=== PATIENT | female | born 1995 | race Caucasian/White ===

== ENCOUNTER → 2018-12-25 | Outpatient (CLI) | payer BC | LOC: OD 13:58 | PROVIDERS: ATTEND Midwife | DX: Z36.89 Encounter for other specified antenatal screening (principal); Z11.3 Encounter for screening for infections with a predominantly sexual mode of transmission | CPT/HCPCS: 36415; 82105; 82677; 84702; 86336; 87491; 87591 ==

== ENCOUNTER 2019-06-02 19:18 | Outpatient (CLI) | payer BC ==
[2019-06-02 20:05] LABS: APPEARANCE,URINE SLIGHTLY-CLOUDY; BILIRUBIN,URINE NEGATIVE (NEGATIVE); COLOR,URINE YELLOW; GLUCOSE, URINE NEGATIVE (NEGATIVE); KETONES,URINE NEGATIVE (NEGATIVE); LEUKOCYTE ESTERASE,URINE TRACE (NEGATIVE); NITRITE,URINE NEGATIVE (NEGATIVE); PROTEIN,URINE NEGATIVE (NEGATIVE); URINE SPECIFIC GRAVITY 1.016
[2019-06-02 20:21] LABS: URINE AMPHETAMINES SCREEN NEGATIVE; URINE BARBITURATES SCREEN NEGATIVE; URINE BENZODIAZEPINES SCREEN NEGATIVE; URINE COCAINE SCREEN NEGATIVE; URINE MARIJUANA (THC) SCREEN NEGATIVE; URINE METHADONE SCREEN NEGATIVE; URINE PHENCYCLIDINE SCREEN NEGATIVE
--- NOTE | 2019-06-02 21:42 | Non Stress Test Report ---
Non Stress Test Datetime Report Generated by CPN: 06/02/2019 21:41 INDICATION Indication for Study (NST) Other: gestational age greater than 32 weeks VITAL SIGNS Temperature - NST: 97.0 Pulse - NST: 86 RESP - NST: 17 NBPSYS NST: 123 NBPDIA NST: 65 MONITORING Monitor Explained: Monitor Explained; Test Explained; Patient Verbalized Understanding Time on Monitor: 06/02/2019 19:26 Time off Monitor: 06/02/2019 20:39 NST Duration: 73 NST INTERVENTIONS NST Interventions: Reposition Patient NST Interventions: PO Hydration; Reposition Patient Physician Notified NST: Dr Palafox BABY A: [id number] BABY A Movement : Present Contraction Frequency : 2-4 FHR Baseline : 125 Accelerations : 15X15 Variability : Moderate 6-25bpm NST Review: Meets Criteria for Reactive NST NST Review and Verified By : Shaquille Mccrary RN NST Results: Reactive NST REPORT Report Trigger: Send Report
== END 2019-06-02 20:45 | disposition home or self-care (01) ==
LOC: LC 19:18
PROVIDERS: ATTEND Obstetrics & Gynecology
PROC: 4A1HXCZ Monitoring of Products of Conception, Cardiac Rate, External Approach (ICD-10-PCS; principal; 2019-06-02)
DX: O47.1 False labor at or after 37 completed weeks of gestation (principal); Z3A.39 39 weeks gestation of pregnancy
CPT/HCPCS: 59025; 80307; 81005

== ENCOUNTER 2019-06-04 09:09 | Inpatient (IN) | payer BC ==
[2019-06-05] MEDS ORDERED: RINGERS SOLUTION,LACTATED 1,500 ML IV PRN (05:00)
[2019-06-05] MEDS ORDERED: RINGERS SOLUTION,LACTATED 1,000 ML IV PRN (05:00)
[2019-06-05] MEDS ORDERED: CEFAZOLIN SODIUM 2 GM in DEXTROSE 5%-WATER 100 ML IV PRN (07:27)
[2019-06-05 07:45] LABS: APPEARANCE,URINE CLOUDY; BILIRUBIN,URINE NEGATIVE (NEGATIVE); GLUCOSE, URINE NEGATIVE (NEGATIVE); KETONES,URINE NEGATIVE (NEGATIVE); LEUKOCYTE ESTERASE,URINE SMALL (NEGATIVE); NITRITE,URINE NEGATIVE (NEGATIVE); PROTEIN,URINE 30 mg/dL (NEGATIVE); URINE SPECIFIC GRAVITY 1.024
[2019-06-05 07:46] LABS: COLOR,URINE YELLOW
[2019-06-05 08:04] LABS: URINE AMPHETAMINES SCREEN NEGATIVE; URINE BARBITURATES SCREEN NEGATIVE; URINE BENZODIAZEPINES SCREEN NEGATIVE; URINE COCAINE SCREEN NEGATIVE; URINE MARIJUANA (THC) SCREEN NEGATIVE; URINE METHADONE SCREEN NEGATIVE; URINE PHENCYCLIDINE SCREEN NEGATIVE
[2019-06-05 08:45] LABS: HEMATOCRIT 27.6 % (36.0-47.0); HEMOGLOBIN 8.8 g/dL (12.0-15.5); MEAN CORPUSCULAR HEMOGLOBIN 22.6 pg (27.0-33.4); MEAN CORPUSCULAR HGB CONC 31.8 g/dL (32.0-36.0); MEAN CORPUSCULAR VOLUME 71 fl (80-97); PLATELET COUNT 218 10^3/uL (150-450); RED BLOOD COUNT 3.89 10^6/uL (3.72-5.28); RED CELL DISTRIBUTION WIDTH 17.3 % (11.5-14.0); WHITE BLOOD COUNT 7.2 10^3/uL (4.0-10.5)
[2019-06-05] MEDS ORDERED: OXYTOCIN 10 UNIT/ML VIAL ONE (09:42)
[2019-06-05] MEDS ORDERED: EPHEDRINE SULFATE INJ 50 MG/1 ML AMPULE ONE (09:42)
[2019-06-05] MEDS ORDERED: FENTANYL CITRATE INJ/PF 100 MCG/2 ML AMPUL ONE ×2 (09:42→12:10)
[2019-06-05] MEDS ORDERED: MIDAZOLAM 2 MG/2 ML INJ ONE (09:43)
[2019-06-05] MEDS ORDERED: ONDANSETRON HCL INJ/PF 4 MG/2 ML SDV ONE (09:43)
[2019-06-05] MEDS ORDERED: NALBUPHINE HCL INJ 10 MG/1 ML AMPULE ONE (09:43)
[2019-06-05] MEDS ORDERED: OXYTOCIN/NORMAL SALINE 20 UNIT/1,000 ML RTUINJ ONE (09:43)
[2019-06-05] MEDS ORDERED: FENTANYL CITRATE INJ/PF 100 MCG/2 ML AMPUL IV PRN ×3 (10:47)
[2019-06-05] MEDS ORDERED: DIPHENHYDRAMINE HCL 50 MG/ML VIAL IV PRN (10:47)
[2019-06-05] MEDS ORDERED: PROMETHAZINE HCL INJ 25 MG/1 ML VIAL IV PRN ×2 (10:47→10:53)
[2019-06-05] MEDS ORDERED: MORPHINE SULFATE 10 MG/ML INJ IV PRN (10:47)
[2019-06-05] MEDS ORDERED: MEPERIDINE HCL/PF INJ 25 MG/1 ML DISP.SYRIN IV PRN (10:47)
[2019-06-05] MEDS ORDERED: OXYTOCIN/NORMAL SALINE 20 UNIT/1,000 ML RTUINJ IV PRN (10:53)
[2019-06-05] MEDS ORDERED: ACETAMINOPHEN 325 MG TABLET PO PRN (10:53)
[2019-06-05] MEDS ORDERED: OXYCODONE-ACETAMINOPHEN 5-325 MG TABLET PO PRN (10:53)
[2019-06-05] MEDS ORDERED: MEASLES,MUMPS&RUBELLA VACC/PF 0.5 ML VIAL SUBCUT PRN (10:53)
[2019-06-05] MEDS ORDERED: DIPH/PERTUSS(ACELL)/TETANUS VAC/PF 0.5 ML SYR (>=10YO) IM PRN (10:53)
[2019-06-05] MEDS ORDERED: ACETAMINOPHEN 1,000 MG/100 ML RTUPB IV PRN (10:53)
[2019-06-05] MEDS ORDERED: SIMETHICONE 80 MG TAB.CHEW PO PRN (10:53)
--- NOTE | 2019-06-05 10:55 | PDOC DELIVERY SUMMARY ---
Delivery Summary - Maternal Hx : I LORA: 06/09/19 Gestational Age: 39+3 Risk Factors: Polyhydramnios Ruptured Membranes: AROM Time of Rupture: 10:34 Fluids: Clear - Delivery Labor: Not In Labor Presentation: Vertex Uterine Contraction Monitoring: External Support Person Present: Yes Location: OR : Scheduled, Primary Placenta: Within Normal Limits Nuchal Cord: No Delivery of Placenta Date: 06/05/19 Delivery of Placenta Time: 10:37 - Medications Type of Anesthesia:: Spinal - Assess and Care Baby 1 Female Delivery of Date: 06/05/19 Delivery of Infant Time: 10:36 at 1 minute: 9 at 5 minutes: 9 Preprinted Number On Band: [id number] Skin to Skin: Yes Skin to Skin (Mins): 5 To Nursery At: 10:44 [facility] Person[facility] Nursery RN: POPPY CHAN MD: LILA MURGUIA
--- NOTE | 2019-06-05 10:57 | Operative Report ---
Operative Report DATE OF SURGERY: 06/05/19 PREOPERATIVE DIAGNOSIS: IUP at term polyhydramnios suspected macrosomia POSTOPERATIVE DIAGNOSIS: Same OPERATION: Primary low transverse section delivery of viable female weight pending SURGEON: LILA MURGUIA ANESTHESIA: Spinal TISSUE REMOVED OR ALTERED: Placenta COMPLICATIONS: None PROCEDURE: The patient was taken to the operating room where spinal anesthesia was obtained and found to be adequate. She was then prepped and draped in the normal sterile fashion and placed in the dorsal supine position with a leftward tilt. A Pfannenstiel skin incision was then made and carried through to the underlying layers of the fascia with the scalpel. The fascia was incised in the midline and the incision extended laterally with the Zamora scissors. The superior aspect of the fascial incision was then grasped with Narciso clamps elevated and the underlying rectus muscles dissected off bluntly. Attention was then turned to the inferior aspect of the fascial incision which in a similar fashion was grasped, tented up with Zheng clamps, and the rectus muscles dissected off bluntly. The rectus muscles were then in the midline and the peritoneum at the amount identified and entered bluntly. The peritoneal incision was then extended superiorly and inferiorly with good visualization of the bladder. [The bladder blade was inserted and the vesicouterine peritoneum identified grasped with Wallisian pickups and entered sharply with the Metzenbaum scissors. His incision was then extended laterally with the Metzenbaum scissors and a bladder flap created digitally. The bladder blade was then reinserted and the lower uterine segment incised in a transverse fashion with the scalpel. The uterine incision was then extended bluntly. The bladder blade was removed and the 's head was delivered from cephalic presentation atraumatically Kiwi extraction 1 pull no pop-off' the nose and mouth were suctioned and the cord doubly clamped and cut. And the was handed off to waiting pediatricians. The placenta was then delivered manully and the uterus exteriorized and cleared of all clots and debris. The uterine incision was then repaired with 1-0 Vicryl in a running locked fashion. A second layer of the same suture was used to obtain hemostasis via imbrication of the initial layer. The uterus was returned to the patient's abdomen. The gutters were cleared of all clots and debris. All operative sites were noted to be hemostatic. The fascia was reapproximated with 0 Vicryl in a running fashion from each lateral edge to the midline. The patient tolerated the procedure well. Sponge lap needle and instrument counts are correct -2. 2 g of Ancef were given prior to skin incision. The patient was taken to the recovery area awake and in stable condition.
[2019-06-05] MEDS ORDERED: KETOROLAC TROMETHAMINE INJ/PF 30 MG/1 ML SDV ONE (12:16)
[2019-06-05] MEDS: MORPHINE SULFATE 10 MG/ML INJ IM PRN (14:24)
[2019-06-05] MEDS: KETOROLAC TROMETHAMINE INJ/PF 30 MG/1 ML SDV IV SCH (17:22)
[2019-06-05] MEDS: DOCUSATE SODIUM 100 MG CAPSULE PO SCH ×2 (17:23→18:42)
[2019-06-06] MEDS: KETOROLAC TROMETHAMINE INJ/PF 30 MG/1 ML SDV IV SCH ×2 (01:28→09:44)
[2019-06-06] MEDS: MORPHINE SULFATE 10 MG/ML INJ IM PRN (03:49)
[2019-06-06 06:12] LABS: HEMATOCRIT 24.8 % (36.0-47.0); MEAN CORPUSCULAR HEMOGLOBIN 22.3 pg (27.0-33.4); MEAN CORPUSCULAR HGB CONC 31.9 g/dL (32.0-36.0); MEAN CORPUSCULAR VOLUME 70 fl (80-97); PLATELET COUNT 205 10^3/uL (150-450); RED BLOOD COUNT 3.55 10^6/uL (3.72-5.28); RED CELL DISTRIBUTION WIDTH 17.1 % (11.5-14.0); WHITE BLOOD COUNT 11.4 10^3/uL (4.0-10.5)
[2019-06-06 06:16] LABS: HEMOGLOBIN 7.9 g/dL (12.0-15.5)
[2019-06-06] MEDS: PRENATAL VITAMIN W DHA CAPSULE PO SCH (10:49)
[2019-06-06] MEDS ORDERED: HYDROCOD/ACETAMIN 7.5-325 MG/15 ML ORAL SOLN UDCUP PO PRN (10:52)
[2019-06-06] MEDS: DOCUSATE SODIUM 100 MG CAPSULE PO SCH (10:56)
[2019-06-06] MEDS ORDERED: FERRIC CARBOXYMALTOSE INJ 750 MG/15 ML VIAL IV ONE (11:44)
--- NOTE | 2019-06-06 11:50 | PDOC PROGRESS REPORT ---
Subjective-OB Progress Note for:: 06/06/19 Subjective: Pt c/o pain, states she is unable to swallow pills, cannot take percocet for pain and cannot swallow PNVs or stool softener. She denies flatus, reports reg diet and has been up to void. Physical Exam (OB) Vital Signs: Temp Pulse Resp BP Pulse Ox 98.5 F 87 16 111/58 L 99 06/06/19 11:40 06/06/19 11:40 06/06/19 11:40 06/06/19 11:40 06/06/19 11:40 Intake & Output 06/05/19 06/06/19 06/07/19 06:59 06:59 06:59 Intake Total 4520 Output Total 2600 700 Balance 1920 -700 Weight 79.379 kg - PIH/Pre-Eclampsia DTR's: 1 + Clonus: Negative Headache: Absent Epigastric Pain: No Visual Changes: No - Dressing Removed: Yes Incision: Open Note: OPSITE dressing not occlusive, removed and incision left open to air - Lochia Lochia Amount: Small 10-25 ml Lochia Color: Rubra/Red - Abdomen Description: Tender, Soft, Round Hernia Present: No Fundal Description: Firm, Midline Fundal Height: u/u - u/2 Objective-Diagnostic Laboratory: 06/06/19 05:56 06/06/19 05:56 WBC 11.4 H RBC 3.55 L Hgb 7.9 L Hct 24.8 L MCV 70 L MCH 22.3 L MCHC 31.9 L RDW 17.1 H Plt Count 205 Assessment and Plan(PN) - Assessment and Plan (1) Iron deficiency anemia of mother during Is this a current diagnosis for this admission?: Yes Plan:: IV iron ordered, PO meds adjusted to liquid forms - Time Spent with Patient Time with patient: Less than 15 minutes Medications reviewed and adjusted accordingly: Yes - Disposition Anticipated Discharge: Home Within: within 24 hours
[2019-06-06] MEDS ORDERED: IBUPROFEN 800 MG TABLET PO SCH (12:00)
[2019-06-06] MEDS ORDERED: FERRIC CARBOXYMALTOSE 750 MG in NORMAL SALINE 250 ML IV ONE (13:00)
[2019-06-06] MEDS: POLYETHYLENE GLYCOL 3350 POWDER 17 GM/1 PACKET PO SCH (13:30)
[2019-06-06] MEDS: IBUPROFEN SUSP 100 MG/5 ML ORAL SYRINGE PO SCH ×2 (16:58→22:59)
[2019-06-07] MEDS: IBUPROFEN SUSP 100 MG/5 ML ORAL SYRINGE PO SCH ×4 (06:08→20:33)
--- NOTE | 2019-06-07 09:48 | PDOC DISCHARGE SUMMARY ---
Impression - Admit/DC Date/PCP Admission Date/Primary Care Provider: 06/05/19 06:44 LILA MURGUIA MD Discharge Date: 06/07/19 - Discharge Diagnosis (1) Iron deficiency anemia of mother during Is this a current diagnosis for this admission?: Yes (2) S/P primary low transverse Is this a current diagnosis for this admission?: Yes - Additional Information Resuscitation Status: Full Code Discharge Diet: Regular Discharge Activity: Balance Activity w/Rest, No Lifting Over 10 Pounds, No Lifting/Push/Pulling, Pelvic Rest [facility] [[facility]] Prescriptions: Hydrocodone/Acetaminophen [Lortab 7.5-325 mg/15 ml Oral Soln] 15 ml PO Q4HP PRN #300 udc PRN Reason: Ferrous Sulfate [Ferrous Sulfate Liquid 300 mg/5 ml Udcup] 300 mg PO TID #450 udc Home Medications: Ferrous Sulfate [Ferrous Sulfate Liquid 300 mg/5 ml Udcup] 300 mg PO TID #450 udc 06/07/19 Hydrocodone/Acetaminophen [Lortab 7.5-325 mg/15 ml Oral Soln] 15 ml PO Q4HP PRN #300 udc 06/07/19 Results Laboratory Results: WBC 11.4 10^3/uL (4.0-10.5) H 06/06/19 05:56 RBC 3.55 10^6/uL (3.72-5.28) L 06/06/19 05:56 Hgb 7.9 g/dL (12.0-15.5) L 06/06/19 05:56 Hct 24.8 % (36.0-47.0) L 06/06/19 05:56 MCV 70 fl (80-97) L 06/06/19 05:56 MCH 22.3 pg (27.0-33.4) L 06/06/19 05:56 MCHC 31.9 g/dL (32.0-36.0) L 06/06/19 05:56 RDW 17.1 % (11.5-14.0) H 06/06/19 05:56 Plt Count 205 10^3/uL (150-450) 06/06/19 05:56 Urine Color YELLOW 06/05/19 07:30 Urine Appearance CLOUDY 06/05/19 07:30 Urine pH 6.0 (5.0-9.0) 06/05/19 07:30 Ur Specific [place] 1.024 06/05/19 07:30 Urine Protein 30 mg/dL (NEGATIVE) H 06/05/19 07:30 Urine Glucose (UA) NEGATIVE mg/dL (NEGATIVE) 06/05/19 07:30 Urine Ketones NEGATIVE mg/dL (NEGATIVE) 06/05/19 07:30 Urine Blood NEGATIVE (NEGATIVE) 06/05/19 07:30 Urine Nitrite NEGATIVE (NEGATIVE) 06/05/19 07:30 Urine Bilirubin NEGATIVE (NEGATIVE) 06/05/19 07:30 Urine Urobilinogen 4.0 mg/dL (<2.0) H 06/05/19 07:30 Ur Leukocyte Esterase SMALL (NEGATIVE) H 06/05/19 07:30 Urine WBC (Auto) 7 /HPF 06/05/19 07:30 Urine RBC (Auto) 3 /HPF 06/05/19 07:30 Urine Bacteria (Auto) 1+ /HPF 06/05/19 07:30 Squamous Epi Cells Auto 28 /HPF 06/05/19 07:30 Urine Mucus (Auto) MOD /LPF 06/05/19 07:30 Urine Ascorbic Acid NEGATIVE (NEGATIVE) 06/05/19 07:30 Urine Opiates Screen NEGATIVE 06/05/19 07:30 Urine Methadone Screen NEGATIVE 06/05/19 07:30 Ur Barbiturates Screen NEGATIVE 06/05/19 07:30 Ur Phencyclidine Scrn NEGATIVE 06/05/19 07:30 Ur Amphetamines Screen NEGATIVE 06/05/19 07:30 U Benzodiazepines Scrn NEGATIVE 06/05/19 07:30 Urine Cocaine Screen NEGATIVE 06/05/19 07:30 U Marijuana (THC) Screen NEGATIVE 06/05/19 07:30 Blood Type A POSITIVE 06/05/19 08:29 Antibody Screen NEGATIVE 06/05/19 08:29
[2019-06-07] MEDS: FERROUS SULFATE LIQUID 300 MG/5 ML UDC PO SCH ×3 (11:02→17:27)
[2019-06-07] MEDS: POLYETHYLENE GLYCOL 3350 POWDER 17 GM/1 PACKET PO SCH (11:02)
[2019-06-07] MEDS: PRENATAL VITAMIN W DHA CAPSULE PO SCH (11:02)
[2019-06-08] MEDS: IBUPROFEN SUSP 100 MG/5 ML ORAL SYRINGE PO SCH ×2 (03:57→13:11)
[2019-06-08 07:29] VITALS: BP 103/57
--- NOTE | 2019-06-08 09:31 | PDOC PROGRESS REPORT ---
Subjective-OB Progress Note for:: 06/08/19 Subjective: Doing well, ready to go home today, voiding, passing gas, pain under control Physical Exam (OB) Vital Signs: Temp Pulse Resp BP Pulse Ox 97.8 F 68 16 103/57 L 95 06/08/19 07:00 06/08/19 07:00 06/08/19 07:00 06/08/19 07:00 06/08/19 07:00 Intake & Output 06/07/19 06/08/19 06/09/19 06:59 06:59 06:59 Intake Total 420 Output Total 2600 Balance -2180 Weight 79.3 kg - PIH/Pre-Eclampsia DTR's: 2 + Clonus: Negative Headache: Absent Epigastric Pain: No Visual Changes: No - Dressing Removed: Yes - opsite dressing removed 06/06 Incision: Dressing Closure Type: Surgical Glue - Lochia Lochia Amount: Small 10-25 ml Lochia Color: Rubra/Red - Abdomen Description: Soft, Round Hernia Present: No Fundal Description: Firm, Midline Fundal Height: u/u - u/2 Objective-Diagnostic Laboratory: 06/06/19 05:56 Assessment and Plan(PN) - Assessment and Plan (1) Iron deficiency anemia of mother during Is this a current diagnosis for this admission?: Yes (2) S/P primary low transverse Is this a current diagnosis for this admission?: Yes - Time Spent with Patient Time with patient: Less than 15 minutes Medications reviewed and adjusted accordingly: Yes - Disposition Anticipated Discharge: Home Within: within 24 hours
[2019-06-08] MEDS: POLYETHYLENE GLYCOL 3350 POWDER 17 GM/1 PACKET PO SCH (09:32)
[2019-06-08] MEDS: PRENATAL VITAMIN W DHA CAPSULE PO SCH (09:32)
--- NOTE | 2019-06-08 09:35 | PDOC DISCHARGE SUMMARY ---
Impression - Admit/DC Date/PCP Admission Date/Primary Care Provider: 06/05/19 06:44 LILA MURGUIA MD Discharge Date: 06/08/19 - Discharge Diagnosis (1) Iron deficiency anemia of mother during Is this a current diagnosis for this admission?: Yes (2) S/P primary low transverse Is this a current diagnosis for this admission?: Yes - Additional Information Resuscitation Status: Full Code Discharge Diet: Regular Discharge Activity: Activity As Tolerated, Balance Activity w/Rest, No Driving, No Lifting Over 10 Pounds, No Lifting/Push/Pulling, Pelvic Rest, No tub bath [facility] [[facility]] Prescriptions: Hydrocodone/Acetaminophen [Lortab 7.5-325 mg/15 ml Oral Soln] 15 ml PO Q4HP PRN #300 udc PRN Reason: Ferrous Sulfate [Ferrous Sulfate Liquid 300 mg/5 ml Udcup] 300 mg PO TID #450 udc Home Medications: Ferrous Sulfate [Ferrous Sulfate Liquid 300 mg/5 ml Udcup] 300 mg PO TID #450 udc 06/07/19 Hydrocodone/Acetaminophen [Lortab 7.5-325 mg/15 ml Oral Soln] 15 ml PO Q4HP PRN #300 udc 06/07/19 HPI Gestational Age: 40 Reason(s) for Admission: Ceasarean Section-Primary Procedures: NST, Ultrasound Intrapartum Procedure(s): : Low Cervical, Transverse Hospital Course Hospital Course: routine Results Laboratory Results: WBC 11.4 10^3/uL (4.0-10.5) H 06/06/19 05:56 RBC 3.55 10^6/uL (3.72-5.28) L 06/06/19 05:56 Hgb 7.9 g/dL (12.0-15.5) L 06/06/19 05:56 Hct 24.8 % (36.0-47.0) L 06/06/19 05:56 MCV 70 fl (80-97) L 06/06/19 05:56 MCH 22.3 pg (27.0-33.4) L 06/06/19 05:56 MCHC 31.9 g/dL (32.0-36.0) L 06/06/19 05:56 RDW 17.1 % (11.5-14.0) H 06/06/19 05:56 Plt Count 205 10^3/uL (150-450) 06/06/19 05:56 Urine Color YELLOW 06/05/19 07:30 Urine Appearance CLOUDY 06/05/19 07:30 Urine pH 6.0 (5.0-9.0) 06/05/19 07:30 Ur Specific [place] 1.024 06/05/19 07:30 Urine Protein 30 mg/dL (NEGATIVE) H 06/05/19 07:30 Urine Glucose (UA) NEGATIVE mg/dL (NEGATIVE) 06/05/19 07:30 Urine Ketones NEGATIVE mg/dL (NEGATIVE) 06/05/19 07:30 Urine Blood NEGATIVE (NEGATIVE) 06/05/19 07:30 Urine Nitrite NEGATIVE (NEGATIVE) 06/05/19 07:30 Urine Bilirubin NEGATIVE (NEGATIVE) 06/05/19 07:30 Urine Urobilinogen 4.0 mg/dL (<2.0) H 06/05/19 07:30 Ur Leukocyte Esterase SMALL (NEGATIVE) H 06/05/19 07:30 Urine WBC (Auto) 7 /HPF 06/05/19 07:30 Urine RBC (Auto) 3 /HPF 06/05/19 07:30 Urine Bacteria (Auto) 1+ /HPF 06/05/19 07:30 Squamous Epi Cells Auto 28 /HPF 06/05/19 07:30 Urine Mucus (Auto) MOD /LPF 06/05/19 07:30 Urine Ascorbic Acid NEGATIVE (NEGATIVE) 06/05/19 07:30 Urine Opiates Screen NEGATIVE 06/05/19 07:30 Urine Methadone Screen NEGATIVE 06/05/19 07:30 Ur Barbiturates Screen NEGATIVE 06/05/19 07:30 Ur Phencyclidine Scrn NEGATIVE 06/05/19 07:30 Ur Amphetamines Screen NEGATIVE 06/05/19 07:30 U Benzodiazepines Scrn NEGATIVE 06/05/19 07:30 Urine Cocaine Screen NEGATIVE 06/05/19 07:30 U Marijuana (THC) Screen NEGATIVE 06/05/19 07:30 Blood Type A POSITIVE 06/05/19 08:29 Antibody Screen NEGATIVE 06/05/19 08:29 Plan Health Concerns: routine PP care Plan of Treatment: no tub baths, take iron and pain meds Goals: normal PP course Time Spent: Less than 30 Minutes
[2019-06-08] MEDS: FERROUS SULFATE LIQUID 300 MG/5 ML UDC PO SCH (13:11)
== END 2019-06-08 14:39 | disposition home or self-care (01) | DRG 788 ==
LOC: 2N 06-05 06:44
PROVIDERS: ADMIT Obstetrics & Gynecology Gynecology; ATTEND Obstetrics & Gynecology Gynecology
PROC: 10D00Z1 Extraction of Products of Conception, Low, Open Approach (ICD-10-PCS; principal; 2019-06-05 10:15)
DX: O32.9XX0 Maternal care for malpresentation of fetus, unspecified, not applicable or unspecified (principal); O40.3XX0 Polyhydramnios, third trimester, not applicable or unspecified; O99.02 Anemia complicating childbirth; D50.9 Iron deficiency anemia, unspecified; Z3A.39 39 weeks gestation of pregnancy; Z37.0 Single live birth
CPT/HCPCS: 1961; 36415; 80307; 81001; 85027; 86850; 86900; 86901; 94799; J1439; J1885; J2250; J2270; J2300; J2405; J2550; J2590; J3010; J3490; J7050; J7120